=== PATIENT | female | born 1930 | race Caucasian/White ===

== ENCOUNTER → 2017-10-19 | Day surgery (SDC) | payer MEDICARE ==
[~2017-10-19] MED LIST: ARICEPT 5 MG TAB5 MG PO; ASPIRIN325 PO; CLONIDINE0.1 PO; COREG6.25 MG PO; DIOVAN160 MG PO; ELEMENTAL CALC600 MG PO; FISH OIL 1,0001 EAC9 PO; GLUCOSAMINE H1500 MG PO; IRON325 PO; LASIX 20 MG TAB20 MG PO; MACRODANTIN100 MG PO; NEURONTIN600 MG PO; NORVASC5 MG PO; OXYCONTIN10 M1 PO; POTASSIUM20 PO; PRAVACHOL20 MG PO; PRILOSEC 20 MG20 MG PO; UNICOMPLEX M TA1 TA1 PO; VITAMIN B-12100 MC1 PO
[2017-10-19 11:45] LABS: CALCIUM 9.3 mg/dL (8.5-10.1); POTASSIUM 4.2 mmol/L (3.5-5.1)
--- NOTE | 2017-10-25 10:08 | OP ---
[facility] [address] [place] [address] OPERATIVE REPORT Name: SUREKHA MARTIN Room: [facility].#: [id number] Admission: 10/19/17 Attend Phys: Ammy Sanchez, Discharge: Date of : 30 Report #: [id number] THIS REPORT FOR: //name// CC: [facility] Donald GUILLEN DATE OF SERVICE: 10/19/2017 PREOPERATIVE DIAGNOSES: Bladder lesion, recurrent urinary tract infections and right bladder wall thickening on CT scan. POSTOPERATIVE DIAGNOSES: Bladder lesion, recurrent urinary tract infections and right bladder wall thickening on CT scan. PROCEDURE: Cystourethroscopy with bladder biopsies and fulguration of large bladder lesion. SURGEON: Ammy Sanchez M.D. ANESTHESIA: General. ESTIMATED BLOOD LOSS: None. COMPLICATIONS: None. SPECIMENS: Bladder biopsies from right wall. INDICATION FOR PROCEDURE: The patient is an 87-year-old female patient of mine I have been following for years for recurrent UTIs. She had bladder biopsies in 2014, which showed chronic cystitis. She recently had a CAT scan for unrelated reasons at [facility], and there was an incidental finding of thickening of her right bladder wall. She had a clinic cystoscopy, which revealed erythematous friable mucosa on the right wall of her bladder. This was definitely abnormal in appearance, so I recommended we proceed with repeat biopsy to make sure this is not CIS, although it certainly could still be cystitis. Risks of procedure were discussed including but not limited to infection, bleeding, injury to the urethra, bladder, ureter, bladder perforation requiring open repair, cardiopulmonary complications. She voiced understanding and wished to proceed. DESCRIPTION OF PROCEDURE: After informed consent was obtained, the patient was taken back to the operating suite and placed supine. After induction of general anesthesia, she was placed in dorsal lithotomy position. Genitalia were prepped and draped in standard fashion. Rigid cystoscopy was [place] [address] OPERATIVE REPORT Name: SUREKHA MARTIN Room: [facility].#: [id number] Admission: 10/19/17 Attend Phys: Ammy Sanchez, Discharge: Date of : 30 Report #: [id number] overall was normal with the exception of a large patch of erythema on the right lateral bladder wall in greatest dimension. This was probably around 4-5 cm. This was easily friable just with filling of the bladder. The ureteral orifices were noted in orthotopic in location. Bladder showed 1+ trabeculations, but otherwise no diverticula. Biopsies were taken with the flexible biopsy forceps, and this area was extremely friable. It was difficult cauterizing this area with the Bugbee. Therefore, I switched out to the resectoscope and fulgurated the entire erythematous strip with the 24 loop. The tissue in this area oozed easily just with filling and refilling of the bladder. However, once I was able to cauterize the entire patch, hemostasis remained excellent. The bladder was emptied and reinspected one final time. There were no bleeders. The bladder was then drained and scope was removed and 5 mL of lidocaine jelly was placed per urethra for local anesthesia. She was awoken, extubated and taken to recovery in satisfactory condition. She will be dismissed home and follow up with me in a week or two for discussion of pathology results. <ELECTRONICALLY SIGNED> By: Ammy Sanchez MD 10/25/17 1008 [id number] 1421Eember Sanchez MD /nt
--- NOTE | 2017-10-30 11:07 | PATH ---
[address] [address] PATHOLOGY RPT PROCEDURE Name: SUREKHA EDWARDS Room: [facility].#: [id number] Admission: 10/19/17 Date of : 30 Discharge: Report #: [id number] Path Case #: [id number] [facility] Accession Number: [id number] . 01 Material submitted: . BLADDER BIOPSY, RIGHT BLADDER WALL . 01 Clinical history: . Bladder lesion . 02 Diagnosis: Bladder biopsy, "bladder biopsy right bladder wall": - Acute and chronic cystitis. - There is no evidence of atypia or malignancy. [facility]/10/23/2017 . 02 Comment: This case is also reviewed by Dr. Maki Lay. . (SHA:miya; 10/23/17) . 02 Electronically signed: . Dennis Duarte MD, Pathologist NPI- [id number] . 01 Gross description: . The specimen is received in formalin, labeled "Surekha Edwards, bladder biopsy right wall". Received are three segments of pale gregg soft tissue ranging in size from 0.2 to 0.5 cm in maximum dimensions. The specimen is submitted entirely in cassette A1. (CAA; 10/20/2017) QAC/QAC . 02 Pathologist provided ICD-10: N30.00, N30.20 . 02 CPT . 666677 Performed at: [address], [place] [id number] MD Raad Pena MD Phone: [phone] Performed at: 02 [facility] [address], [place], [place] [id number] MD Pk Garcia MD Phone: [phone]
== END | disposition home or self-care (01) ==
LOC: M.SUR 07:17
PROVIDERS: Urology
DX: N30.00 Acute cystitis without hematuria (principal); N30.20 Other chronic cystitis without hematuria; I10 Essential (primary) hypertension; I25.10 Atherosclerotic heart disease of native coronary artery without angina pectoris; I25.2 Old myocardial infarction; E78.5 Hyperlipidemia, unspecified; K21.9 Gastro-esophageal reflux disease without esophagitis; Z79.899 Other long term (current) drug therapy; Z95.5 Presence of coronary angioplasty implant and graft; Z98.890 Other specified postprocedural states; Z87.440 Personal history of urinary (tract) infections

== ENCOUNTER → 2018-10-09 | Outpatient (CLI) | payer MEDICARE ==
[~2018-10-09] MED LIST changes: +ALBUTEROL2.5 MG/31 INH; +AUGMENTIN 500-1 EACH PO; +PROBIOTIC1 EAC1 PO
[2018-10-09 09:50] VITALS: BP 128/59
[2018-10-09 11:00] VITALS: BP 118/62
--- NOTE | 2018-10-09 12:02 | NUR ---
INFUSION COMPLETED AND TOLERATED WELL. DENIES QUESTIONS OR NEEDS AT DISCHARGE.
== END ==
LOC: M.INFUS 10-02 10:00
DX: D50.8 Other iron deficiency anemias (principal); D63.1 Anemia in chronic kidney disease; N18.4 Chronic kidney disease, stage 4 (severe)